=== PATIENT | male | born 1950 ===

== ENCOUNTER → 2019-08-24 09:18 | Day surgery (SDC) | payer MEDICARE ==
[~2019-08-24 09:18] MED LIST: Acetaminophen TAB* 325 MG PO PRN; Buffered Lidocaine 1% SYRIN* 1 ML/SYRINGE INTRADERM ONE; Bupivacaine 0.5%* 50 ML MDV VIAL ONE; Dexamethasone IV* 4 MG/ML 1 ML (4 MG) ONE; DiMENhydriNATE IV* 50 MG/ML VIAL IV PUSH PRN; Ketorolac INJ* 30 MG/ML 1 ML VIAL ONE; Lactated Ringers 1000 ML Bag* 1,000 ML IV SCH; Lidocaine 2% PF * 5 ML VIAL ONE; Metoclopramide IV* 5 MG/ML 2 ML VIAL ONE; Midazolam* 1 MG/ML 2 ML VIAL (2 MG) ONE; Naloxone* 0.4 MG/ML 1 ML VIAL IV PRN; Ondansetron INJ* 2 MG/ML VIAL ONE; ceFAZolin 2 GM in NS PREMIX(*) 2 GM/100 ML BAG IVPB ONE; fentaNYL* 50 MCG/ML 2 ML VIAL (100 MCG VIAL) IV PRN; fentaNYL* 50 MCG/ML 2 ML VIAL (100 MCG VIAL) ONE; oxyCODONE TAB* 5 MG TAB PO PRN
[2019-08-24 14:18] VITALS: BP 117/61
--- NOTE | 2019-08-25 00:21 | OP ---
DATE OF OPERATION: 08/24/19 - [facility] DATE OF : 54 SURGEON: Moe Franklin MD SYSTEMS ENG: Nelia Elizabeth PA-C PRE-OP DIAGNOSES: Right fifth hammertoe with some subluxation of the second MTP joint. POST-OP DIAGNOSES: Right fifth hammertoe with some subluxation of the second MTP joint. OPERATIVE PROCEDURE: Correction with resection arthroplasty second PIP and MTP dorsal and medial capsulotomy and pinning. DESCRIPTION OF PROCEDURE: The patient was taken to the operating room. Longitudinal incision made over the dorsum of the second toe. The PIP joint was exposed with transverse capsulotomy with release of the collateral ligaments. We removed the bone surfaces with the narrow microsagittal saw. We then pinned the toe with a point 0.062 C-wire with the PIP joint in extension neutral position. The MTP joint relaxed nicely just through the correction of the hammertoe, so we opened up 1 cm incision over the dorsum of the MTP joint and through this incision I did a dorsal capsulotomy and a medial collateral release and then advanced the K- wire across the joint. All wounds were then irrigation with 3-0 Monocryl and 3-0 nylon and a compression dressing was applied. [id number]/[facility] #: [id number] [facility]ENTERReyna
== END | disposition home or self-care (01) ==
LOC: OR 09:18
PROVIDERS: ATTEND Orthopaedic Surgery
DX: M20.41 Other hammer toe(s) (acquired), right foot (principal); R73.03 Prediabetes
CPT/HCPCS: C1776; J0690; J1100; J1885; J2250; J2405; J2765; J3010; J3490